=== PATIENT | female | born 1990 ===

== ENCOUNTER 2018-07-15 09:26 | Emergency (ER) | payer OTHER ==
[2018-07-15 09:41] VITALS: TEMP 98.2
[2018-07-15] MEDS ORDERED: Sodium Chloride 0.9% 1,000 ML IV ONE (10:07)
[2018-07-15 10:12] LABS: URINE BILIRUBIN NEGATIVE (NEGATIVE); URINE BLOOD 3+ (NEGATIVE); URINE CLARITY Hazy (Clear); URINE COLOR Red (YELLOW); URINE GLUCOSE (UA) NORMAL (Normal); URINE LEUKOCYTE ESTERASE 2+ Leu/uL (Negative); URINE PROTEIN 2+ mg/dL (NEGATIVE); URINE UROBILINOGEN NORMAL mg/dL (0.2-1.0)
--- NOTE | 2018-07-15 10:16 | C.PDOC ---
History Of Present Illness 28 year old female with a history of fibroids and ovarian cysts presents to the ED for evaluation of right-sided pelvic pain associated with vomiting for 3 days. Patient reports having the same episode of symptoms 3 months ago, was evaluated and treated in another ED, diagnosed with ovarian cysts, and has not followed up with PMD since concerning her diagnosis. Admits she has increased pelvic pain with her menses which she just started 2 days ago. Notes taking Tylenol for the pain, with some improvement. Denies vaginal discharge, abdominal pain, n/v/d, fever, chest pain, sob, gu symptoms and any other associated symptoms. Time Seen by Provider: 07/15/18 09:42 Chief Complaint (Nursing): Abdominal Pain History Per: Patient History/Exam Limitations: no limitations Onset/Duration Of Symptoms: Days Current Symptoms Are (Timing): Still Present Past Medical History Reviewed: Historical Data, Nursing Documentation, Vital Signs Vital Signs: Last Vital Signs Temp 98.2 F 07/15/18 09:35 Pulse 91 H 07/15/18 09:35 Resp 18 07/15/18 09:35 BP 122/91 H 07/15/18 09:35 Pulse Ox 99 07/15/18 09:35 Family History: States: Unknown Family Hx - Social History Hx Alcohol Use: No Hx Substance Use: No - Immunization History Hx Tetanus Toxoid Vaccination: No Hx Influenza Vaccination: No Hx Pneumococcal Vaccination: No Review Of Systems Except As Marked, All Systems Reviewed And Found Negative. Gastrointestinal: Positive for: Vomiting Genitourinary: Positive for: Pelvic Pain (right-sided.). Negative for: Vaginal Discharge, Vaginal Bleeding Physical Exam - Physical Exam Appears: Well, No Acute Distress Skin: Normal Color, Warm, Dry Head: Atraumatic, Normacephalic Eye(s): bilateral: Normal Inspection, EOMI Nose: Normal Oral Mucosa: Moist Neck: Normal ROM, Supple Chest: Symmetrical, No Deformity Cardiovascular: Rhythm Regular Respiratory: Normal Breath Sounds, No Rales, No Rhonchi, No Wheezing Gastrointestinal/Abdominal: Soft, Tenderness (right sided pelvic tenderness) Back: No CVA Tenderness, No Vertebral Tenderness Extremity: Normal ROM (x4) Neurological/Psych: Oriented x3, Normal Speech Gait: Steady ED Course And Treatment - Laboratory Results Result Diagrams: 07/15/18 10:16 07/15/18 10:16 O2 Sat by Pulse Oximetry: 99 (RA) Pulse Ox Interpretation: Normal - CT Scan/US CT ABD/Pelvis Other Rad Studies (CT/US): Read By Radiologist CT/US Interpretation: FINDINGS: LOWER THORAX: No visible consolidation, pleural effusion, or pneumothorax. LIVER: Hypoattenuation of the liver co mpatible with hepatic steatosis. GALLBLADDER AND BILE DUCTS: Unremarkable. PANCREAS: Unremarkable. SPLEEN: Unremarkable. ADRENALS: Unremarkable. KIDNEYS AND URETERS: The kidneys enhance symmetrically. No hydronephrosis or obstructing calculus identified. Too small to characterize bilateral renal hypodense lesions, likely cysts. VASCULATURE: No aortic aneurysm. No atherosclerotic calcification or mural plaque present. BOWEL: Stomach is nondistended. Lack of oral contrast limits evaluation for bowel pathology. Bowel loops appear within normal limits of caliber without evidence of obstruction. Moderate constipation. APPENDIX: The appendix appears within normal limits of caliber. No secondary signs of acute appendicitis. PERITONEUM: No significant free fluid. No definite free air. LYMPH NODES: No bulky adenopathy identified. BLADDER: Unremarkable. REPRODUCTIVE: Heterogeneous appearance of the uterus with suspected 3.8 x 3.4 cm fibroid. Bilateral adnexal cystic lesions likely ovarian cysts. Recommend pelvic ultrasound for further evaluation. BONES: No acute osseous abnormality is detected. OTHER FINDINGS: None. IMPRESSION: Heterogeneous appearance of the uterus with cysts suspected 3.8 x 3.4 cm fibroid. Bilateral adnexal cystic lesions likely ovarian cysts. Recommend pelvic ultrasound for further evaluation. Hypoattenuation of the liver compatible with hepatic steatosis. Moderate constipation. Additional findings as above. US ABD/Pelvis Other Rad Studies (CT/US): Read By Radiologist CT/US Interpretation: FINDINGS: UTERUS: Measures 7.3 x 4.9 x 5.9 cm. Retroverted. 2.2 x 1.8 x 1.9 cm heterogeneous mid uterine mass, consistent with uterine fibroid. ENDOMETRIUM: Measures 4 mm in diameter. CERVIX: No cervical abnormality identified. RIGHT OVARY: Measures 3.9 x 2.0 x 3.2 cm. Blood flow is demonstrated. LEFT OVARY: Measures 4.8 x 2.9 x 4.0 cm. Blood flow is demonstrated. 3.0 x 2.4 x 3.0 cm complex cyst. FREE FLUID: No significant free fluid noted. OTHER FINDINGS: None. IMPRESSION: 2.2 x 1.8 x 1.9 cm mid uterine fibroid. 3.0 x 2.4 x 3.0 cm complex left ovarian cyst. Recommend 6 week ultrasound follow-up to assess for resolution. Progress Note: CT ABD/Pelvis. US ABD/Pelvis. Blood sent. Given Toradol and Zofran. Urine HCG. Urinalysis. CT and US viewed by the attending Dr. Hernandez and myself. On re-evaluation, tolerating PO. Nontender. Soft. Afebrile. Patient reports improvement in pain. Instruced to follow up with her [facility] [facility] in 1-2 days. Work up results given. Disposition - Disposition Referrals: [facility] [Outside] Disposition: HOME/ ROUTINE Disposition Time: 14:50 Condition: STABLE Additional Instructions: Follow up with primary medical doctor in 1-3 days without fail for further evaluation. Take medications as prescribed. Return to the emergency department at any time if symptoms persist or worsen. Prescriptions: Naproxen [Naprosyn] 1 tab PO BID PRN #20 tab PRN Reason: Pain Instructions: Ovarian Cyst (DC) Forms: [employer] (Indonesian) - Clinical Impression Clinical Impression: Ovarian cyst, Fibroid, uterine - PA / [employer] / Resident Statement MD/DO has reviewed & agrees with the documentation as recorded. - Scribe Statement The provider has reviewed the documentation as recorded by the Scribe (Mickie Proctor) All medical record entries made by the Scribe were at my direction and personally dictated by me. I have reviewed the chart and agree that the record accurately reflects my personal performance of the history, physical exam, medical decision making, and the department course for this patient. I have also personally directed, reviewed, and agree with the discharge instructions and disposition.
[2018-07-15 10:17] LABS: HCG,QUALITATIVE URINE NEGATIVE (NEGATIVE)
[2018-07-15 10:33] LABS: BASO % 0.3 % (0.0-2.0); HEMOGLOBIN 14.7 g/dL (11.0-16.0); LYMPH # 1.1 K/uL (1.0-4.3); LYMPH % 7.4 % (20.0-40.0); MEAN CELL VOLUME 91.5 fL (81.0-99.0); MEAN CORPUSCULAR HEMOGLOBIN 31.5 pg (27.0-31.0); MEAN CORPUSCULAR HGB CONC 34.4 g/dL (33.0-37.0); MEAN PLATELET VOLUME 9.7 fL (7.2-11.7); MONO # 0.8 K/uL (0.0-0.8); MONO % 5.4 % (0.0-10.0); NEUT # 12.9 K/uL (1.8-7.0); NEUT % 86.9 % (50.0-75.0); PLATELET COUNT 281 K/uL (130-400); RBC 4.68 Mil/uL (3.80-5.20); RED CELL DISTRIBUTION WIDTH 13.3 % (11.5-14.5); WHITE BLOOD COUNT 14.8 K/uL (4.8-10.8)
[2018-07-15 10:48] LABS: ALB/GLOB RATIO 1.4 (1.0-2.1); ALBUMIN 4.4 g/dL (3.5-5.0); ALT/SGPT 17 U/L (9-52); AST/SGOT 19 U/L (14-36); BLOOD UREA NITROGEN 11 mg/dL (7-17); CALCIUM 9.8 mg/dl (8.6-10.4); GFR NON-AFRICAN AMERICAN > 60; LIPASE 60 U/L (23-300)
[2018-07-15 10:59] LABS: BANDS 2 % (0-2); LYMPHOCYTE 4 % (20-40); MONOCYTE 4 % (0-10); NEUTROPHIL 90 % (50-75); TOTAL CELLS COUNTED 100
[2018-07-15 11:00] LABS: LARGE PLATELETS PRESENT; PLATELET ESTIMATE NORMAL (NORMAL)
[2018-07-15] MEDS ORDERED: Iodixanol 320 MG/ML 100 ML BOTTLE IV ONE (11:46)
--- NOTE | 2018-07-15 12:31 | CT ---
Date of service: 07/15/2018 PROCEDURE: CT Abdomen and Pelvis with contrast HISTORY: right sided pain COMPARISON: None available. TECHNIQUE: Contrast dose: 100 mL Visipaque 320 Radiation dose: Total exam DLP = 332.5 mGy-cm. This CT exam was performed using one or more of the following dose reduction techniques: Automated exposure control, adjustment of the mA and/or kV according to patient size, and/or use of iterative reconstruction technique. FINDINGS: LOWER THORAX: No visible consolidation, pleural effusion, or pneumothorax. LIVER: Hypoattenuation of the liver compatible with hepatic steatosis. GALLBLADDER AND BILE DUCTS: Unremarkable. PANCREAS: Unremarkable. SPLEEN: Unremarkable. ADRENALS: Unremarkable. KIDNEYS AND URETERS: The kidneys enhance symmetrically. No hydronephrosis or obstructing calculus identified. Too small to characterize bilateral renal hypodense lesions, likely cysts. VASCULATURE: No aortic aneurysm. No atherosclerotic calcification or mural plaque present. BOWEL: Stomach is nondistended. Lack of oral contrast limits evaluation for bowel pathology. Bowel loops appear within normal limits of caliber without evidence of obstruction. Moderate constipation. APPENDIX: The appendix appears within normal limits of caliber. No secondary signs of acute appendicitis. PERITONEUM: No significant free fluid. No definite free air. LYMPH NODES: No bulky adenopathy identified. BLADDER: Unremarkable. REPRODUCTIVE: Heterogeneous appearance of the uterus with suspected 3.8 x 3.4 cm fibroid. Bilateral adnexal cystic lesions likely ovarian cysts. Recommend pelvic ultrasound for further evaluation. BONES: No acute osseous abnormality is detected. OTHER FINDINGS: None. IMPRESSION: Heterogeneous appearance of the uterus with cysts suspected 3.8 x 3.4 cm fibroid. Bilateral adnexal cystic lesions likely ovarian cysts. Recommend pelvic ultrasound for further evaluation. Hypoattenuation of the liver compatible with hepatic steatosis. Moderate constipation. Additional findings as above.
--- NOTE | 2018-07-15 14:51 | US ---
Date of service: 07/15/2018 HISTORY: pain COMPARISON: No prior ultrasound available for comparison. CT of the abdomen and pelvis with IV contrast performed 07/15/18 TECHNIQUE: Real-time transabdominal pelvic ultrasound was performed. In addition a transvaginal pelvic ultrasound was necessary to better depict pelvic anatomy. FINDINGS: UTERUS: Measures 7.3 x 4.9 x 5.9 cm. Retroverted. 2.2 x 1.8 x 1.9 cm heterogeneous mid uterine mass, consistent with uterine fibroid. ENDOMETRIUM: Measures 4 mm in diameter. CERVIX: No cervical abnormality identified. RIGHT OVARY: Measures 3.9 x 2.0 x 3.2 cm. Blood flow is demonstrated. LEFT OVARY: Measures 4.8 x 2.9 x 4.0 cm. Blood flow is demonstrated. 3.0 x 2.4 x 3.0 cm complex cyst. FREE FLUID: No significant free fluid noted. OTHER FINDINGS: None. IMPRESSION: 2.2 x 1.8 x 1.9 cm mid uterine fibroid. 3.0 x 2.4 x 3.0 cm complex left ovarian cyst. Recommend 6 week ultrasound follow-up to assess for resolution.
[2018-07-15 14:58] VITALS: BP 100/70; PULSE 80; RESP 20
[2018-07-15 15:16] VITALS: O2SAT 99
== END 2018-07-15 15:13 | disposition home or self-care (01) ==
LOC: C.ER 09:26
DX: N83.209 Unspecified ovarian cyst, unspecified side (principal); D25.9 Leiomyoma of uterus, unspecified
CPT/HCPCS: 74177; 76830; 76856; 80053; 81001; 83690; 84703; 85025; 96361; 96374; 96375; 99284; J1885; J2405; J7030; Q9967